=== PATIENT | female | born 1955 | race Asian ===

== ENCOUNTER 2017-08-15 03:10 | Emergency (ER) | payer OTHER ==
[~2017-08-15] VITALS: Ht 160 cm; Wt 61.2 kg
[~2017-08-15 03:10] MED LIST: ATOR10TA84 PO; CETI-261 PO; LEVO88TA4 PO; METF850T2 PO; TELM20 PO
[2017-08-15 03:22] LABS: GLUCOSE,POINT OF CARE 148 MG/DL (70-110)
[2017-08-15] MEDS ORDERED: ROSU10 PO (03:26)
[2017-08-15] MEDS ORDERED: DEXAMETHASONE SOD PHOS 4 MG/ML 5 ML VIAL IM ONE (04:15)
[2017-08-15 04:17] VITALS: BP 146/70
== END 2017-08-15 04:20 | disposition home or self-care (01) ==
LOC: EMS 03:10
DX: T78.40XA Allergy, unspecified, initial encounter (principal); R10.13 Epigastric pain; E11.9 Type 2 diabetes mellitus without complications; E78.00 Pure hypercholesterolemia, unspecified; I10 Essential (primary) hypertension; E03.9 Hypothyroidism, unspecified; Z88.8 Allergy status to other drugs, medicaments and biological substances
CPT/HCPCS: 82962; 96372; 99283; J1100

== ENCOUNTER 2018-05-16 23:23 | Emergency (ER) | payer OTHER ==
[~2018-05-16] VITALS: Ht 160 cm; Wt 61.4 kg
[~2018-05-16 23:23] MED LIST changes: -ATOR10TA84 PO; -CETI-261 PO; +METF-445 PO; -METF850T2 PO; +ROSU10 PO
[2018-05-16] MEDS ORDERED: DILT60SR PO (23:35)
[2018-05-16 23:39] LABS: GLUCOSE,POINT OF CARE 164 MG/DL (70-110)
[2018-05-17] MEDS ORDERED: PredniSONE 20 MG TABLET PO ONE (01:30)
[2018-05-17] MEDS ORDERED: HydrOXYzine HCL 25 MG TABLET PO ONE (01:30)
[2018-05-17 02:17] VITALS: BP 132/80
== END 2018-05-17 02:19 | disposition home or self-care (01) ==
LOC: EMS 23:24
DX: L50.9 Urticaria, unspecified (principal); I10 Essential (primary) hypertension; E11.9 Type 2 diabetes mellitus without complications; E03.9 Hypothyroidism, unspecified; E78.00 Pure hypercholesterolemia, unspecified; Z91.018 Allergy to other foods; Z79.84 Long term (current) use of oral hypoglycemic drugs; Z79.899 Other long term (current) drug therapy
CPT/HCPCS: 82962; 99283; J7512

== ENCOUNTER → 2023-03-28 | Outpatient (CLI) | payer MEDICARE ==
[~2023-03-28] MED LIST changes: +DILT60SR PO; -ROSU10 PO; +ROSU10TA72 PO
== END | disposition home or self-care (01) ==
LOC: RADPV 09:51
PROVIDERS: ATTEND Internal Medicine
DX: M79.606 Pain in leg, unspecified (principal)
CPT/HCPCS: 93970

== ENCOUNTER 2024-07-31 05:13 | Day surgery (SDC) | payer MEDICARE, OTHER ==
[2024-07-31] VITALS (15 sets, daily range): BP systolic 97–124; BP diastolic 50–62; PULSE 63–81
[~2024-07-31] VITALS: Ht 162.6 cm; Wt 59.5 kg
[~2024-07-31 05:13] MED LIST changes: +ANAS1TAB50 PO; +ASPI-1450 PO; -METF-445 PO; +PANT-31 PO; +SITA1TBM4 PO
[2024-07-31] MEDS ORDERED: SODIUM CHLORIDE 0.9% 1,000 ML ONE (06:09)
[2024-07-31 06:45] LABS: BASOPHILS % (AUTO) 0.3 % (0.0-2.0); EOSINOPHILS % (AUTO) 2.8 % (1.0-6.0); HEMATOCRIT 37.1 % (36-46); HEMOGLOBIN 11.8 g/dL (12.0-16.0); LYMPHOCYTES # (AUTO) 1.6 K/uL (1.0-4.8); MEAN CORPUSCULAR HEMOGLOBIN 26.4 pg (26.0-34.0); MEAN CORPUSCULAR HGB CONC 31.7 G/dL (31.0-37.0); MEAN CORPUSCULAR VOLUME 83 fL (80-100); MONOCYTES # (AUTO) 0.5 K/uL (0.1-1.0); MONOCYTES % (AUTO) 7.1 % (2.0-9.0); NEUTROPHILS # (AUTO) 5.1 K/uL (1.8-7.7); NEUTROPHILS % (AUTO) 67.8 % (40.0-70.0); PLATELET COUNT (AUTO) 325 K/uL (150-450); RED BLOOD CELL COUNT(AUTO) 4.45 MIL/uL (4.00-5.20); RED CELL DISTRIBUTION WIDTH 14.2 % (11.5-14.5); WHITE BLOOD COUNT (AUTO) 7.5 K/uL (4.5-11.0)
[2024-07-31] MEDS: SODIUM CHLORIDE 0.9% 1,000 ML IV ONE (06:46)
[2024-07-31 06:55] LABS: PROTHROMBIN TIME 10.3 SEC (9.4-11.6)
[2024-07-31 07:00] LABS: GLUCOMETER DEV NAME(LOC) SDS.; GLUCOSE,POINT OF CARE 135 MG/DL (70-110)
[2024-07-31 07:00] LABS: ANION GAP 9 mmol/L (8-16); CALCIUM, TOTAL 9.7 mg/dL (8.8-10.5); CARBON DIOXIDE 28 mmol/L (22-29); CHLORIDE 100 mmol/L (98-107); CREATININE 0.92 mg/dL (0.60-1.30); GLOMERULAR FILTR. RATE CALC > 60 mL/min (>60); GLUCOSE,RANDOM 133 mg/dL (70-110); POTASSIUM 3.8 mmol/L (3.5-5.1); SODIUM SERUM 137 mmol/L (136-145); UREA NITROGEN, BLOOD 13 mg/dL (7-18)
[2024-07-31 07:04] LABS: ALANINE AMINOTRANSFERASE 40 U/L (12-78); ALBUMIN 3.3 g/dL (3.4-5.0); ALKALINE PHOSPHATASE 55 U/L (46-116); ASPARTATE AMINOTRANSFERASE 23 U/L (15-37); BILIRUBIN,TOTAL 0.2 mg/dL (0.1-1.0); TOTAL PROTEIN, SERUM 6.8 g/dL (6.4-8.2)
[2024-07-31] MEDS ORDERED: SODIUM BICARBONATE 50 MEQ/50 ML VIAL ONE (07:07)
[2024-07-31] MEDS ORDERED: IOHEXOL 300 MG/ML 100 ML VIAL ONE (07:07)
[2024-07-31] MEDS ORDERED: NITROGLYCERIN 50 MG/D5% WATER 250 ML ONE (07:07)
[2024-07-31] MEDS ORDERED: HEPARIN SODIUM 1000 UNITS/NS 1,000 ML ONE (07:07)
[2024-07-31] MEDS ORDERED: LIDOCAINE/PF 1% 30 ML VIAL ONE (07:07)
[2024-07-31] MEDS ORDERED: VERAPAMIL HCL 2.5 MG/ML 2 ML VIAL ONE (07:07)
[2024-07-31] MEDS ORDERED: MIDAZOLAM HCL 2 MG/2 ML VIAL ONE (07:28)
[2024-07-31] MEDS ORDERED: FentaNYL CITRATE PF 100 MCG/2 ML VIAL ONE (07:28)
[2024-07-31] MEDS: HEPARIN SODIUM,PORCINE 1,000 UNITS/ML 10 ML VIAL IARTER ONE (07:59)
[2024-07-31] MEDS: VERAPAMIL HCL 2.5 MG/ML 2 ML VIAL IARTER ONE (07:59)
[2024-07-31] MEDS: IOHEXOL 300 MG/ML 100 ML VIAL ICOR ONE (08:00)
[2024-07-31] MEDS: LIDOCAINE 1% 30 ML/SOD BICARB 8.4% 4 ML SQ ONE (08:00)
[2024-07-31] MEDS: HEPARIN SODIUM 2,000 UNITS in HEPARIN SODIUM 1000 UNITS/NS 1,000 ML IARTER ONE (08:01)
[2024-07-31] MEDS: NITROGLYCERIN/D5W 50 MG/250 ML IV BOTTLE IARTER ONE (08:01)
[2024-07-31] MEDS: FentaNYL CITRATE PF 100 MCG/2 ML VIAL IVP ONE (08:13)
[2024-07-31] MEDS: MIDAZOLAM HCL 2 MG/2 ML VIAL IVP ONE (08:13)
== END 2024-07-31 13:56 | disposition home or self-care (01) ==
LOC: CATHLAB 05:13
PROVIDERS: ATTEND Internal Medicine
DX: R94.39 Abnormal result of other cardiovascular function study (principal); E03.9 Hypothyroidism, unspecified; E11.22 Type 2 diabetes mellitus with diabetic chronic kidney disease; E78.5 Hyperlipidemia, unspecified; I12.9 Hypertensive chronic kidney disease with stage 1 through stage 4 chronic kidney disease, or unspecified chronic kidney disease; K21.9 Gastro-esophageal reflux disease without esophagitis; N18.9 Chronic kidney disease, unspecified; Z79.84 Long term (current) use of oral hypoglycemic drugs; Z79.899 Other long term (current) drug therapy; Z79.890 Hormone replacement therapy; Z79.82 Long term (current) use of aspirin; Z88.8 Allergy status to other drugs, medicaments and biological substances
CPT/HCPCS: 93458; 93005; 80053; 82962; 85025; 85610; 85730; 36415; 99152; J3010; J1644; J3490 ×4; J2250; J7030; Q9967